=== PATIENT | male | born 1980 | race Caucasian/White ===

== ENCOUNTER 2020-11-01 15:40 | Emergency (ER) | payer OTHER ==
[~2020-11-01] VITALS: Ht 172.7 cm; Wt 104.3 kg
[2020-11-01] MEDS ORDERED: DEXAMETHASONE 4 MG TABLET PO STA (16:15)
[2020-11-01] MEDS ORDERED: DEXAMETHASONE 4 MG TABLET ONE (16:18)
--- NOTE | 2020-11-01 16:27 | NUR ---
pt medicated, plpan of discussed. chest xray completed.
--- NOTE | 2020-11-01 17:10 | NUR ---
Patient discharged home with understanding not to go to work until results back or 10 days after start of symptoms.
[2020-11-01 17:11] VITALS: BP 128/76
== END 2020-11-01 17:15 | disposition home or self-care (01) ==
LOC: ED 17:09
DX: U07.1 COVID-19 (principal); J40 Bronchitis, not specified as acute or chronic; B34.9 Viral infection, unspecified; R51.9 Headache, unspecified
CPT/HCPCS: 71045; 87635; 93005; 99285